=== PATIENT | female | born 2000 | race Caucasian/White ===

== ENCOUNTER 2022-09-26 11:08 | Inpatient (IN) | payer SELFPAY ==
[~2022-09-26] VITALS: Ht 152.4 cm; Wt 66.7 kg
[2022-09-26] MEDS: LACTATED RINGERS 1,000 ML IV SCH ×2 (00:38→18:00)
[~2022-09-26 11:08] MED LIST: CALCIUM; FERR325T6 PO; MAGNESIUM; PRENATAL VITAMIN
[2022-09-26] MEDS ORDERED: OXYTOCIN 30 UNITS/500ML NS PMX 500 ML IV SCH (12:30)
[2022-09-26] MEDS ORDERED: RHO(D) IMMUNE GLOBULIN 300 MCG/SYR IM NR (13:00)
[2022-09-26 14:53] LABS: CLARITY URINE CLOUDY (CLEAR); COLOR URINE YELLOW (YELLOW); KETONES URINE NEGATIVE (NEGATIVE); LEUKOCYTE ESTERASE URINE NEGATIVE (NEGATIVE); NITRITE URINE NEGATIVE (NEGATIVE); OCCULT BLOOD URINE NEGATIVE (NEGATIVE); PH URINE 5.5 (4.5-8.0); PROTEIN URINE NEGATIVE (NEGATIVE); SPECIFIC GRAVITY URINE 1.011 (1.005-1.030); UROBILINOGEN URINE 0.2 E.U./dL (0.2-1.0)
[2022-09-26 14:54] LABS: BASOPHILS % 0.5 % (0.0-2.0); EOSINOPHILS % 1.2 % (0.0-5.0); HEMATOCRIT. 31.9 % (36.0-48.0); HEMOGLOBIN. 11.2 g/dL (12.0-16.0); LYMPHOCYTES % 19.8 % (20.0-50.0); MEAN CORPUSCULAR HEMOGLOBIN 29.9 pg (28.0-32.0); MEAN PLATELET VOLUME 9.5 fl (7.4-10.4); MONOCYTES % 5.4 % (2.0-8.0); NEUTROPHILS % 73.1 % (40.0-76.0); PLATELET 190 x1000/uL (130-400); RED BLOOD CELL COUNT 3.75 mill/uL (4.2-5.4); RED CELL DISTRIBUTION WIDTH 14.5 % (11.6-14.6)
[2022-09-26 15:05] LABS: INR 0.9; PARTIAL THROMBOPLASTIN TIME 26.8 sec (23.4-31.0); PROTHROMBIN TIME 9.8 sec (9.6-11.0)
[2022-09-26 15:40] LABS: *AMPHETAMINES SCREEN URINE NEGATIVE (NEGATIVE); *BARBITURATES SCREEN URINE NEGATIVE (NEGATIVE); *BENZODIAZEPINES SCREEN URINE NEGATIVE (NEGATIVE); *COCAINE SCREEN URINE NEGATIVE (NEGATIVE); CANNABINOID URINE SCREEN NEGATIVE (NEGATIVE); METHADONE URINE SCREEN NEGATIVE (NEGATIVE); OPIATES URINE SCREEN NEGATIVE (NEGATIVE); PHENCYCLIDINE URINE SCREEN NEGATIVE (NEGATIVE)
[2022-09-26 15:57] LABS: HEPATITIS B SURFACE ANTIGEN NEGATIVE
[2022-09-26] MEDS: MEPERIDINE HCL/PF 25MG/ML CPJ IV NR (23:03)
[2022-09-26] MEDS: MEPERIDINE HCL/PF 25MG/ML CPJ IM PRN (23:06)
[2022-09-27] MEDS: LACTATED RINGERS 1,000 ML IV SCH ×3 (00:38→09:03)
[2022-09-27] MEDS ORDERED: ROPIVACAINE HCL/PF EPIDURAL 0 ML EPI ONE (01:24)
[2022-09-27] MEDS ORDERED: MEPERIDINE HCL/PF 25MG/ML CPJ IV ONE (01:45)
[2022-09-27] MEDS: MEPERIDINE HCL/PF 25MG/ML CPJ IV NR ×2 (01:52→04:11)
[2022-09-27] MEDS: MEPERIDINE HCL/PF 25MG/ML CPJ IM PRN (04:11)
[2022-09-27] MEDS ORDERED: LIDOCAINE HCL 1% 20ML VIAL (Pyxis) INJ INFIL NR (06:45)
[2022-09-27] MEDS ORDERED: OXYTOCIN 30 UNITS/500ML NS PMX 500 ML IV SCH (10:15)
[2022-09-27 10:45] VITALS: BP 114/66; PULSE 58; RESP 18; TEMP 98
[2022-09-27 11:15] VITALS: BP 106/58; PULSE 58; RESP 18; TEMP 98.6
[2022-09-27 12:00] VITALS: BP 97/55; PULSE 58; RESP 18; TEMP 98
[2022-09-27 13:46] VITALS: O2SAT 100
[2022-09-27] MEDS ORDERED: METHYLERGONOVINE MALEATE 0.2 MG/ML IM PRN (14:00)
[2022-09-27] MEDS ORDERED: RHO(D) IMMUNE GLOBULIN 300 MCG/SYR IM PRN (14:00)
[2022-09-27] MEDS ORDERED: IBUPROFEN 400MG TABLET PO PRN (14:00)
[2022-09-27] MEDS ORDERED: LANOLIN OINT 7GM TUBE TOP PRN (14:00)
[2022-09-27] MEDS ORDERED: BENZOCAINE/LANOLIN/ALOE VERA SPRAY TOP PRN (14:00)
[2022-09-27] MEDS ORDERED: ACETAMINOPHEN WITH CODEINE 300/30MG TABLET PO PRN (14:00)
[2022-09-27] MEDS ORDERED: BISACODYL 10MG SUPP PR PRN (14:00)
[2022-09-27 16:30] VITALS: BP 98/60; PULSE 60; RESP 18; TEMP 98.8
[2022-09-27 19:30] VITALS: BP 90/50; PULSE 101; RESP 20; TEMP 98.9; O2SAT 97
[2022-09-27] MEDS: SIMETHICONE 80MG TABLET CHEW PO SCH (21:28)
[2022-09-27] MEDS: DOCUSATE SODIUM 100MG CAPSULE PO SCH (21:28)
[2022-09-27] MEDS: IBUPROFEN 800MG TABLET PO PRN (21:28)
[2022-09-27] MEDS: GLYCERIN/WITCH HAZEL LEAF MEDICATED PAD TOP PRN (21:51)
[2022-09-28 04:00] VITALS: BP 99/53; PULSE 81; RESP 20; TEMP 98
[2022-09-28] MEDS: IBUPROFEN 800MG TABLET PO PRN ×2 (04:55→18:36)
[2022-09-28 06:25] LABS: HEMATOCRIT 24.3 % (36.0-48.0); HEMOGLOBIN 8.6 g/dL (12.0-16.0); MEAN CORPUSCULAR HEMOGLOBIN 29.9 pg (28.0-32.0); MEAN CORPUSCULAR VOLUME 84.6 fL (81.0-99.0); PLATELET 151 x1000/uL (130-400); RED BLOOD CELL COUNT 2.87 mill/uL (4.2-5.4)
[2022-09-28 08:00] VITALS: BP 90/51; PULSE 74; RESP 20; TEMP 98.6; O2SAT 98
[2022-09-28] MEDS: SIMETHICONE 80MG TABLET CHEW PO SCH ×3 (08:00→20:46)
[2022-09-28 16:00] VITALS: BP 98/61; PULSE 94; RESP 20; TEMP 99
[2022-09-28 19:50] VITALS: BP 93/58; PULSE 94; RESP 18; TEMP 98.3; O2SAT 98
[2022-09-28] MEDS: GLYCERIN/WITCH HAZEL LEAF MEDICATED PAD TOP PRN (20:46)
[2022-09-28] MEDS: DOCUSATE SODIUM 100MG CAPSULE PO SCH (20:46)
[2022-09-28] MEDS: CEPHALEXIN 250MG CAPSULE PO SCH (22:35)
[2022-09-29] MEDS ORDERED: CEPHALEXIN 250MG/5ML ORAL SYRINGE PO SCH
[2022-09-29] MEDS: IBUPROFEN 800MG TABLET PO PRN (03:05)
[2022-09-29 03:30] VITALS: BP 98/50; PULSE 83; RESP 18; TEMP 98.9
[2022-09-29] MEDS: CEPHALEXIN 250MG CAPSULE PO SCH (04:48)
[2022-09-29 07:00] LABS: BASOPHILS % 0.4 % (0.0-2.0); HEMATOCRIT. 24.8 % (36.0-48.0); HEMOGLOBIN. 8.7 g/dL (12.0-16.0); LYMPHOCYTES % 24.8 % (20.0-50.0); MEAN CORPUSCULAR HEMOGLOBIN 29.8 pg (28.0-32.0); MEAN CORPUSCULAR VOLUME 84.9 fL (81.0-99.0); MONOCYTES % 5.5 % (2.0-8.0); NEUTROPHILS % 68.3 % (40.0-76.0); PLATELET 171 x1000/uL (130-400); RED BLOOD CELL COUNT 2.92 mill/uL (4.2-5.4); RED CELL DISTRIBUTION WIDTH 14.8 % (11.6-14.6)
[2022-09-29] MEDS ORDERED: CEPH250C2 PO (07:32)
[2022-09-29] MEDS ORDERED: IBUP-2030 PO (07:32)
[2022-09-29 08:00] VITALS: BP 99/61; PULSE 68; RESP 18; TEMP 97; O2SAT 98
[2022-09-29] MEDS ORDERED: CEPHALEXIN 250MG CAPSULE PO SCH (20:00)
== END 2022-09-29 10:50 | disposition home or self-care (01) | DRG 560 ==
LOC: 8 EST LDRP 11:08 → OBSVTOIN 11:08 → 8EST 09-27 12:13
PROVIDERS: ADMIT Obstetrics & Gynecology; ATTEND Obstetrics & Gynecology
PROC: 10D07Z3 Extraction of Products of Conception, Low Forceps, Via Natural or Artificial Opening (ICD-10-PCS; principal; 2022-09-27)
PROC: 0KQM0ZZ Repair Perineum Muscle, Open Approach (ICD-10-PCS; 2022-09-27)
DX: O48.0 Post-term pregnancy (principal); Z37.0 Single live birth; O70.1 Second degree perineal laceration during delivery; Z3A.40 40 weeks gestation of pregnancy; O77.0 Labor and delivery complicated by meconium in amniotic fluid; O99.02 Anemia complicating childbirth
CPT/HCPCS: 36415; 80305; 81003; 85025; 85027; 86592; 86703; 86762; 86850; 86900; 87340; 99281; J2175; J2795; J3490; J7120; A4315; J2590